=== PATIENT | female | born 1955 | race Caucasian/White ===

== ENCOUNTER 2016-11-23 11:47 | Inpatient (IN) | payer OTHER ==
[2016-11-23 15:21] VITALS: BMI 29.5
--- NOTE | 2016-11-23 17:26 | HP ---
COWS - Scale Resting Pulse: 1= ND 81-100 Sweatin= Chills/Flushing Restless Observation: 3= Extraneous Movement Pupil Size: 0= Normal to Room Light Bone or Joint Aches: 2= Severe Diffuse Aches Runny Nose/ Eye Tearin= Runny Nose/Eyes GI Upset > 30mins: 3= Vomiting/Diarrhea Tremor Observation: 2= Slight Tremor Visible Yawning Observation: 0= None Anxiety or Irritability: 2=Irritable/Anxious Goose Flesh Skin: 0=Smooth Skin COWS Score: 16 [facility] Chief Complaint: withdrawal sx last detox 2011, relapsed 06/2016 Allergies/Adverse Reactions: Allergies Allergy/AdvReac Type Severity Reaction Status Date / Time No Known Allergies Allergy Verified 11/23/16 17:30 History of Present Illness: 61 years old female with long history of opium nicotine dependence, has hypertension, hypercholesterol, glaucoma, and depression is admitted to detox Exam Limitations: No Limitations - Ebola screening Have you traveled outside of the country in the last 21 days: No Have you had contact with anyone from an Ebola affected area: No Have you been sick,other than usual withdrawal symptoms: No Do you have a fever: No - Review of Systems Constitutional: Chills, Changes in sleep, Weight Stable EENT: reports: Cataracts (right eye treated 2006), Other (glaucoma left eye) Respiratory: reports: SOB with Exertion Cardiac: reports: No Symptoms Reported GI: reports: Nausea, Poor Fluid Intake, Vomiting, Abdominal cramping : reports: No Symptoms Reported Musculoskeletal: reports: Back Pain, Joint Pain, Muscle Pain, Neck Pain Integumentary: reports: No Symptoms Reported Neuro: reports: Tremors Endocrine: reports: No Symptoms Reported Hematology: reports: No Symptoms Reported, Other (myocardia infraction 2009 had angiogram, treated with plavix, last dose " long time ago") Psychiatric: reports: Judgement Intact, Orientated x3, Depressed Other Systems: Reviewed and Negative Patient History - Patient Medical History Hx Anemia: No Hx Asthma: No Hx Chronic Obstructive Pulmonary Disease (COPD): No Hx Cancer: No Hx Cardiac Disorders: Yes (MILD DC IN 02/2011--ON ASPIRIN 81 MG DAILY) Hx Congestive Heart Failure: No (ON METAPROLOL 25 MG BID) Hx Hypertension: Yes (currently on treatment) Hx Hypercholesterolemia: Yes (ON PLAVIX 75 MG AND PRAVASTATIN 40 MG DAILY) Hx Pacemaker: No HX Cerebrovascular Accident: No Hx Seizures: No Hx Dementia: No Hx Diabetes: No Hx Gastrointestinal Disorders: No Hx Liver Disease: No Hx Genitourinary Disorders: No Hx Sexually Transmitted Disorders: No Hx Renal Disease (ESRD): No Hx Thyroid Disease: No Hx Human Immunodeficiency Virus (HIV): No Hx Hepatitis C: No Hx Depression: Yes (DEPRESSION) Hx Suicide Attempt: No Hx Bipolar Disorder: No Hx Schizophrenia: No - Patient Surgical History Past Surgical History: Yes Hx Neurologic Surgery: No Hx Cataract Extraction: No Hx Cardiac Surgery: No Hx Lung Surgery: No Hx Breast Surgery: No Hx Breast Biopsy: No Hx Abdominal Surgery: No Hx Appendectomy: No Hx Cholecystectomy: No Hx Genitourinary Surgery: No Hx Section: No Hx Orthopedic Surgery: Yes (RIGHT KNEE SX RELATED TO FX- IN 2008) Hx Hysterectomy: No Other Surgical History: BRAIN SX IN 2007 RELATED TO BENIGN BRAIN TUMOR Anesthesia Reaction: No - PPD History Previous Implant?: Yes Documented Results: Negative w/proof Implanted On Prior [facility] Admission?: Yes Date: 11/01/10 Results: negative PPD to be Administered?: Yes - Reproductive History Patient is a Female of Child Bearing Age (11 -55 yrs old): No Last Menstrual Period: 10/08/96 Patient : No - Smoking Cessation Smoking history: Current every day smoker Have you smoked in the past 12 months: Yes Aproximately how many cigarettes per day: 20 Cigars Per Day: 0 Hx Chewing Tobacco Use: No Initiated information on smoking cessation: Yes 'Breaking Loose' booklet given: 11/23/16 - Substance & Tx. History Hx Alcohol Use: No Hx Substance Use: Yes Substance Use Type: Heroin Hx Substance Use Treatment: Yes (06/17-06/21/11 [facility]) - Substances Abused Heroin Route: Inhalation Frequency: Daily Amount used: 3 bags Age of first use: 55 Date of Last Use: 11/22/16 Family Disease History - Family Disease History Family Disease History: Other: Father (), Mother (kidney dialysis), Brother (killed) Admission Physical Exam BHS - Vital Signs Vital Signs: Vital Signs - 24 hr 11/23/16 15:08 Temperature 96.4 F L Pulse Rate 91 H Respiratory 20 Rate Blood Pressure 140/101 - Physical General Appearance: Yes: Appropriately Dressed, Mild Distress, Tremorous, Irritable, Sweating, Anxious HEENTM: Yes: Hearing grossly Normal, Normal ENT Inspection, Normocephalic, Normal Voice, Other (glaucoma left eye + cataract) Respiratory: Yes: Chest Non-Tender, Lungs Clear, Normal Breath Sounds, No Respiratory Distress, No Accessory Muscle Use Neck: Yes: Supple, Trachea in good position Breast: Yes: Breasts Symetrical Cardiology: Yes: Regular Rhythm, S1, S2, Tachycardia Abdominal: Yes: Non Tender, Soft, Increased Bowel Sounds Genitourinary: Yes: Within Normal Limits Back: Yes: Normal Inspection Musculoskeletal: Yes: full range of Motion, Gait Steady, Back pain, Joint swelling (right knee), Muscle Pain Extremities: Yes: Non-Tender, Tremors, Swelling (right knee) Neurological: Yes: Fully Oriented, Alert, Motor Strength 5/5 (cane), Normal Response, Depressed Affect Integumentary: Yes: Normal Color, Warm Lymphatic: Yes: Within Normal Limits - Diagnostic (1) Opioid dependence with withdrawal Current Visit: Yes Status: Acute (2) Hypertension Current Visit: Yes Status: Chronic Qualifiers: Hypertension type: essential hypertension Qualified Code(s): I10 - Essential (primary) hypertension (3) Hyperlipidemia Current Visit: Yes Status: Chronic Qualifiers: Hyperlipidemia type: pure hypercholesterolemia Qualified Code(s): E78.00 - Pure hypercholesterolemia, unspecified; E78.0 - Pure hypercholesterolemia (4) Glaucoma Current Visit: Yes Status: Chronic Qualifiers: Glaucoma type: other Laterality: left Qualified Code(s): H40.89 - Other specified glaucoma (5) Cataract Current Visit: Yes Status: Resolved Qualifiers: Cataract type: other Laterality: right Qualified Code(s): H26.8 - Other specified cataract (6) Myocardial infarct, old Current Visit: Yes Status: Chronic Comment: 2010 (7) Swelling of right knee joint Current Visit: Yes Status: Chronic Comment: history of trauma (8) Use of cane as ambulatory aid Current Visit: Yes Status: Chronic (9) Depression Current Visit: Yes Status: Suspected Qualifiers: Depression Type: dysthymia Qualified Code(s): F34.1 - Dysthymic disorder Comment: mother (10) Nicotine dependence Current Visit: Yes Status: Acute Qualifiers: Nicotine product type: cigarettes Substance use status: in withdrawal Qualified Code(s): F17.213 - Nicotine dependence, cigarettes, with withdrawal BHS Breath Alcohol Content Breath Alcohol Content: 0 Urine Pregancy Test - Result Urine Test Results: Negative- NO Line Present Urine Drug Screen - Results Drug Screen Negative: No Urine Drug Screen Results: THC-Marijuana, OPI-Opiates, MTD-Methadone
[2016-11-23] MEDS ORDERED: MENTHOL/PHENOL 1 EACH UD MM PRN (17:36)
[2016-11-23] MEDS ORDERED: P-EPHED 60MG/TRIPROLIDI 2.5MG TABLET PO PRN (17:36)
[2016-11-23] MEDS ORDERED: guaiFENesin/D-METHORPHAN HB 10 ML UNIT-DOSE CUPS PO PRN (17:36)
[2016-11-23] MEDS ORDERED: NICOTINE POLACRILEX 4 MG GUM BC PRN (17:36)
[2016-11-23] MEDS ORDERED: MAGNESIUM CITRATE 300 ML BOTTLE PO PRN (17:36)
[2016-11-23] MEDS ORDERED: MAG HYDROX/AL HYDROX/SIMETH 30 ML UNIT-DOSE CUP PO PRN (17:36)
[2016-11-23] MEDS ORDERED: ACETAMINOPHEN 325 MG TABLET (FP) PO PRN (17:36)
[2016-11-23] MEDS ORDERED: LOPERAMIDE HCL 2 MG CAPSULE PO PRN (17:36)
[2016-11-23] MEDS ORDERED: MAGNESIUM HYDROX 2400MG/30ML ORAL SUSPENSION 30 ML CUP PO PRN (17:36)
[2016-11-23] MEDS ORDERED: METHADONE HCL 10 MG TABLET (FOR DETOX USE ONLY) PO ONE ×2 (18:45→23:00)
[2016-11-23] MEDS: diazePAM 5 MG TABLET PO PRN (19:22)
[2016-11-23] MEDS: LATANOPROST 0.005% OPHTH SOLN 2.5ML BOTTLE OS SCH (22:37)
[2016-11-23] MEDS: ATORVASTATIN CA 20 MG TABLET (FP) PO SCH (22:38)
[2016-11-23] MEDS: METOPROLOL TARTRATE 25 MG TABLET (FP) PO SCH (22:38)
[2016-11-23] MEDS: THIAMINE HCL 100 MG TABLET (FP) PO SCH (22:38)
[2016-11-23] MEDS: diphenhydrAMINE HCL 50 MG CAPSULE PO PRN (22:40)
[2016-11-23 23:11] LABS: URINE APPEARANCE SLCLOUDY; URINE BILIRUBIN NEGATIVE (NEGATIVE); URINE BLOOD NEGATIVE (NEGATIVE); URINE COLOR YELLOW; URINE GLUCOSE (UA) NEGATIVE (NEGATIVE); URINE KETONE NEGATIVE (NEGATIVE); URINE NITRITE NEGATIVE (NEGATIVE); URINE PROTEIN NEGATIVE (NEGATIVE); URINE UROBILINOGEN NEGATIVE mg/dL (0.2-1.0)
[2016-11-23 23:14] LABS: URINE LEUK ESTERASE TRACE (NEGATIVE)
[2016-11-23 23:21] LABS: URINE MUCUS RARE; URINE RBC 26 /hpf (0-3); URINE WBC 5 /hpf (3-5)
[2016-11-24] MEDS ORDERED: METHADONE HCL 10 MG TABLET (FOR DETOX USE ONLY) PO ONE (10:00)
[2016-11-24 10:09] LABS: MCH 31.5 pg (25.7-33.7); MCHC 33.8 g/dl (32.0-36.0); MEAN CELL VOLUME 93.3 fl (80-96); MEAN PLT VOLUME 9.2 fl (7.5-11.1); PLATELET COUNT 163 K/MM3 (134-434); RDW 13.9 % (11.6-15.6); WHITE BLOOD COUNT 7.8 K/mm3 (4.0-10.0)
[2016-11-24 10:18] LABS: ALBUMIN 3.3 g/dl (3.4-5.0); ANION GAP 5 (8-16); CALCIUM 9.2 mg/dL (8.5-10.1); CO2 29 mmol/L (21-32); CREATININE 0.8 mg/dL (0.55-1.02); GLUCOSE,RANDOM 83 mg/dL (74-106); SGOT/AST 12 U/L (15-37); SGPT/ALT 15 U/L (12-78)
[2016-11-24 10:20] LABS: ALK PHOS 94 U/L (45-117); BILIRUBIN,TOTAL 0.7 mg/dL (0.2-1.0); TOT PROT 6.6 g/dl (6.4-8.2)
[2016-11-24] MEDS: PRENATAL VITAMINS W/ FOLIC ACID TABLET (FP) PO SCH (10:34)
[2016-11-24] MEDS: ASPIRIN 81 MG CHEWABLE TABLETS PO SCH (10:34)
[2016-11-24] MEDS: NICOTINE 21 MG/24 HOURS TOPICAL PATCH TD SCH (10:35)
[2016-11-24] MEDS: METOPROLOL TARTRATE 25 MG TABLET (FP) PO SCH ×2 (10:35→22:21)
--- NOTE | 2016-11-24 10:37 | PN ---
BHS COWS - Scale Resting Pulse: 0= [place] 80 or Below Sweatin=Flushed/Facial Moisture Restless Observation: 1= Difficult to Sit Still Pupil Size: 0= Normal to Room Light Bone or Joint Aches: 1= Mild Discomfort Runny Nose/ Eye Tearin= Runny Nose/Eyes GI Upset > 30mins: 1= Stomach Cramp Tremor Observation of Outstretched Hands: 2= Slight Tremor Visible Yawning Observation: 2= >3x During Session Anxiety or Irritability: 2=Irritable/Anxious Goose Flesh Skin: 0=Smooth Skin COWS Score: 13 BHS Progress Note (SOAP) Subjective: sweats mild shakes interrupted sleep agitation body aches Objective: 11/24/16 10:37 Vital Signs Temperature 97.7 F 11/24/16 06:33 Pulse Rate 63 11/24/16 06:33 Respiratory Rate 16 11/24/16 06:33 Blood Pressure 122/72 11/24/16 06:33 O2 Sat by Pulse Oximetry (%) Laboratory Tests 11/23/16 11/24/16 19:05 06:30 WBC 7.8 RBC 4.69 Hgb 14.8 Hct 43.7 MCV 93.3 MCH 31.5 MCHC 33.8 RDW 13.9 Plt Count 163 MPV 9.2 Urine Color Yellow Urine Appearance Slcloudy Urine pH 6.0 Ur Specific [place] 1.025 Urine Protein Negative Urine Glucose (UA) Negative Urine Ketones Negative Urine Blood Negative Urine Nitrite Negative Urine Bilirubin Negative Urine Urobilinogen Negative Ur Leukocyte Esterase Trace H Urine RBC 26 Urine WBC 5 Ur Epithelial Cells Few Urine Mucus Rare awake/alert ambulating no acute distress Assessment: 11/24/16 10:37 withdrawal sx Plan: continue detox increase fluids labs pending
--- NOTE | 2016-11-24 13:00 | CONSULT ---
[facility] Psychiatric Consult - Data Date of interview: 11/24/16 Admission source: [facility] Identifying data: Readmission to [facility] for this 61 y/o female seeking detox treatment on for opioid dependence.Patient is since 2009,a mother of three,domiciled,unemployed and supported on 's benefits. Substance Abuse History: Ms Mckenzie admits to heroin abuse since 2009 (3 bags daily ;last use on 11/22/16 via snorting).She states that she has been using methadone, on her own," to stop the craving ".Smokes one pack of cigarettes on a daily basis. Medical History: Consistent with a history of myocardial infarction (2009), glaucoma,hypercholesterolemia,hypertension.Noted additional history of neurosurgery (benign brain tumor) in 2007 and orthosurgery (2008) for fracture of right knee. Psychiatric History: Patient denies history of psychiatric hospitalizations.She admits to a brief period of outpatient psychiatric care for depression,in 2009, after the of .Was prescribed an antidepressant (name not recalled) .Stopped treatment after " a couple of visits " and never returned to [facility] care.Ms Mckenzie is offered option of SSRI medication : she declines.Patient denies history of suicide attempts. Physical/Sexual Abuse/Trauma History: No reported history of sexual abuse or domestic violence. Additional Comment: Urine Drug Screen is positive for marijuana,opiates and methadone. Mental Status Exam - Mental Status Exam Alert and Oriented to: Time, Place, Person Cognitive Function: Good Patient Appearance: Well Groomed Mood: Sad, Anxious Affect: Mood Congruent Patient Behavior: Fatigued, Appropriate, Cooperative Speech Pattern: Clear, Appropriate Voice Loudness: Normal Thought Process: Intact, Goal Oriented Thought Disorder: Not Present Hallucinations: Denies Suicidal Ideation: Denies Homicidal Ideation: Denies Insight/Judgement: Fair Sleep: Well Appetite: Fair Muscle strength/Tone: Normal (no complaint offered) Gait/Station: Other (walks with cane) Psychiatric Findings - Problem List ([place] 1, 2,3) (1) Opioid dependence with withdrawal Current Visit: Yes Status: Acute (2) Nicotine dependence Current Visit: Yes Status: Acute Qualifiers: Nicotine product type: cigarettes Substance use status: in withdrawal Qualified Code(s): F17.213 - Nicotine dependence, cigarettes, with withdrawal (3) Substance induced mood disorder Current Visit: Yes Status: Acute (4) Glaucoma Current Visit: Yes Status: Chronic Qualifiers: Glaucoma type: other Laterality: left Qualified Code(s): H40.89 - Other specified glaucoma (5) Hyperlipidemia Current Visit: Yes Status: Chronic Qualifiers: Hyperlipidemia type: pure hypercholesterolemia Qualified Code(s): E78.00 - Pure hypercholesterolemia, unspecified; E78.0 - Pure hypercholesterolemia (6) Hypertension Current Visit: Yes Status: Chronic Qualifiers: Hypertension type: essential hypertension Qualified Code(s): I10 - Essential (primary) hypertension (7) Myocardial infarct, old Current Visit: Yes Status: Chronic Comment: 2009 (8) Swelling of right knee joint Current Visit: Yes Status: Chronic Comment: history of trauma (9) Use of cane as ambulatory aid Current Visit: Yes Status: Chronic - Initial Treatment Plan Initial Treatment Plan: Psychoeducation and support offered in this session.S report is appreciated.Detoxification is under way.No psychotropic medications with the exception of detox agents (patient's request).Made aware of benefits of pharmacotherapy in the management of affective dysregulation and risks ( morbidity,poor general functioning,impulsive behaviors) of negation of therapy.Patient maintains her decision to abstain from antidepressant medications.Observation.
--- NOTE | 2016-11-24 17:07 | EKG ---
Test Reason : Blood Pressure : / mmHG Vent. Rate : 075 BPM Atrial Rate : 075 BPM P-R Int : 156 ms QRS Dur : 086 ms QT Int : 394 ms P-R-T Axes : 066 063 047 degrees QTc Int : 439 ms NORMAL SINUS RHYTHM POSSIBLE LEFT ATRIAL ENLARGEMENT BORDERLINE ECG NO PREVIOUS ECGS AVAILABLE Confirmed by JESSICA FLETCHER MD ([id number]) on 11/24/2016 5:07:36 PM Referred By: Confirmed By:JESSICA FLETCHER MD
[2016-11-24] MEDS: LATANOPROST 0.005% OPHTH SOLN 2.5ML BOTTLE OS SCH (22:20)
[2016-11-24] MEDS: ATORVASTATIN CA 20 MG TABLET (FP) PO SCH (22:21)
[2016-11-24] MEDS: THIAMINE HCL 100 MG TABLET (FP) PO SCH (22:21)
[2016-11-24] MEDS: diazePAM 5 MG TABLET PO PRN (22:22)
[2016-11-25] MEDS ORDERED: METHADONE HCL 5 MG TABLET (FOR DETOX USE ONLY) PO ONE (10:00)
[2016-11-25] MEDS: PRENATAL VITAMINS W/ FOLIC ACID TABLET (FP) PO SCH (10:33)
[2016-11-25] MEDS: ASPIRIN 81 MG CHEWABLE TABLETS PO SCH (10:33)
[2016-11-25] MEDS: METOPROLOL TARTRATE 25 MG TABLET (FP) PO SCH ×2 (10:33→22:50)
[2016-11-25] MEDS: NICOTINE 21 MG/24 HOURS TOPICAL PATCH TD SCH (10:34)
--- NOTE | 2016-11-25 11:29 | PN ---
BHS COWS - Scale Resting Pulse: 0= [place] 80 or Below Sweatin= Chills/Flushing Restless Observation: 1= Difficult to Sit Still Pupil Size: 0= Normal to Room Light Bone or Joint Aches: 1= Mild Discomfort Runny Nose/ Eye Tearin= Nasal Congestion GI Upset > 30mins: 0= None Tremor Observation of Outstretched Hands: 2= Slight Tremor Visible Yawning Observation: 2= >3x During Session Anxiety or Irritability: 2=Irritable/Anxious Goose Flesh Skin: 0=Smooth Skin COWS Score: 10 S Progress Note (SOAP) Subjective: feeling better sweats I want to leave on Wednesday. Objective: 11/25/16 11:26 Vital Signs Temperature 97.5 F L 11/25/16 06:53 Pulse Rate 67 11/25/16 06:53 Respiratory Rate 16 11/25/16 06:53 Blood Pressure 136/73 11/25/16 06:53 O2 Sat by Pulse Oximetry (%) Laboratory Tests 11/23/16 11/23/16 11/24/16 06:30 19:05 06:30 WBC 7.8 RBC 4.69 Hgb 14.8 Hct 43.7 MCV 93.3 MCH 31.5 MCHC 33.8 RDW 13.9 Plt Count 163 MPV 9.2 Sodium Potassium Chloride Carbon Dioxide Anion Gap BUN Creatinine Creat Clearance w eGFR Random Glucose Calcium Total Bilirubin AST ALT Alkaline Phosphatase Total Protein Albumin Urine Color Yellow Urine Appearance Slcloudy Urine pH 6.0 Ur Specific [place] 1.025 Urine Protein Negative Urine Glucose (UA) Negative Urine Ketones Negative Urine Blood Negative Urine Nitrite Negative Urine Bilirubin Negative Urine Urobilinogen Negative Ur Leukocyte Esterase Trace H Urine RBC 26 Urine WBC 5 Ur Epithelial Cells Few Urine Mucus Rare RPR Titer Hepatitis C Antibody 2.3 H 11/24/16 11/24/16 06:30 06:30 WBC RBC Hgb Hct MCV MCH MCHC RDW Plt Count MPV Sodium 142 Potassium 4.3 Chloride 108 H Carbon Dioxide 29 Anion Gap 5 L BUN 16 Creatinine 0.8 Creat Clearance w eGFR > 60 Random Glucose 83 Calcium 9.2 Total Bilirubin 0.7 D AST 12 L ALT 15 D Alkaline Phosphatase 94 Total Protein 6.6 Albumin 3.3 L Urine Color Urine Appearance Urine pH Ur Specific [place] Urine Protein Urine Glucose (UA) Urine Ketones Urine Blood Urine Nitrite Urine Bilirubin Urine Urobilinogen Ur Leukocyte Esterase Urine RBC Urine WBC Ur Epithelial Cells Urine Mucus RPR Titer Nonreactive Hepatitis C Antibody Hep C result show a positive result: pt made aware to follow up with PMD awake/alert ambulating no acute distress Assessment: 11/25/16 11:27 mild withdrawal sx Plan: continue detox pt in agreement to have one methadone dose decreased so pt can be d/c on Wednesday as per pt request. Encouraged pt to f/u with PMD on Hep C result copy of result in chart.
[2016-11-25] MEDS: diazePAM 5 MG TABLET PO PRN (22:49)
[2016-11-25] MEDS: LATANOPROST 0.005% OPHTH SOLN 2.5ML BOTTLE OS SCH (22:49)
[2016-11-25] MEDS: THIAMINE HCL 100 MG TABLET (FP) PO SCH (22:49)
[2016-11-25] MEDS: ATORVASTATIN CA 20 MG TABLET (FP) PO SCH (22:50)
[2016-11-26] MEDS ORDERED: METHADONE HCL 5 MG TABLET (FOR DETOX USE ONLY) PO ONE (10:00)
[2016-11-26] MEDS ORDERED: METHADONE HCL 10 MG TABLET (FOR DETOX USE ONLY) PO ONE (10:00)
[2016-11-26] MEDS: ASPIRIN 81 MG CHEWABLE TABLETS PO SCH (10:55)
[2016-11-26] MEDS: NICOTINE 21 MG/24 HOURS TOPICAL PATCH TD SCH (10:55)
[2016-11-26] MEDS: PRENATAL VITAMINS W/ FOLIC ACID TABLET (FP) PO SCH (10:55)
[2016-11-26] MEDS: METOPROLOL TARTRATE 25 MG TABLET (FP) PO SCH ×2 (10:55→22:54)
--- NOTE | 2016-11-26 12:52 | PN ---
BHS Progress Note (SOAP) Subjective: ALERT,IRRITABLE,ANXIOUS,INTERRUPTED SLEEP,PAIN IN THE BODY Objective: 11/26/16 12:55 Vital Signs Temperature 97.7 F 11/26/16 10:00 Pulse Rate 68 11/26/16 10:00 Respiratory Rate 18 11/26/16 10:00 Blood Pressure 138/82 11/26/16 10:00 O2 Sat by Pulse Oximetry (%) Assessment: 11/26/16 12:55 WITHDRAWAL SYMPTOM Plan: CONTINUE DETOX
[2016-11-26] MEDS: THIAMINE HCL 100 MG TABLET (FP) PO SCH (22:54)
[2016-11-26] MEDS: LATANOPROST 0.005% OPHTH SOLN 2.5ML BOTTLE OS SCH (22:54)
[2016-11-26] MEDS: ATORVASTATIN CA 20 MG TABLET (FP) PO SCH (22:54)
[2016-11-26] MEDS: diphenhydrAMINE HCL 50 MG CAPSULE PO PRN (22:55)
[2016-11-27 07:21] VITALS: BP 112/63; PULSE 58; TEMP 97.9
--- NOTE | 2016-11-27 08:47 | DS ---
[facility] Detox Discharge Summary Admission Date: 11/23/16 Discharge Date: 11/27/16 - History Present History: Opioid Dependence - Physical Exam Results Vital Signs: Vital Signs Temperature 97.9 F 11/27/16 06:00 Pulse Rate 58 L 11/27/16 06:00 Respiratory Rate 18 11/27/16 06:00 Blood Pressure 112/63 11/27/16 06:00 O2 Sat by Pulse Oximetry (%) - Treatment Hospital Course: Detox Protocol Followed, Detoxed Safely, Responded well, Discharged Condition Good - Medication Discharge Medications: Ambulatory Orders Aspirin Coated [Ecotrin] 81 mg PO DAILY 06/17/11 Clopidogrel Bisulfate [Plavix] 75 mg PO DAILY 06/17/11 Latanoprost 0.005% Eye Drops [Xalatan Ophth Drops] 1 drop OP HS 06/17/11 Metoprolol Tartrate [Lopressor] 25 mg PO BID 06/17/11 Pravastatin Sodium [Pravachol (Nf)] 40 mg PO HS 06/17/11 Citalopram Hydrobromide [Celexa] 20 mg PO DAILY #0 tablet 06/21/11 - Diagnosis (1) Nicotine dependence Current Visit: Yes Status: Acute Qualifiers: Nicotine product type: cigarettes Substance use status: in withdrawal Qualified Code(s): F17.213 - Nicotine dependence, cigarettes, with withdrawal (2) Opioid dependence with withdrawal Current Visit: Yes Status: Acute (3) Glaucoma Current Visit: Yes Status: Chronic Qualifiers: Glaucoma type: other Laterality: left Qualified Code(s): H40.89 - Other specified glaucoma (4) Hyperlipidemia Current Visit: Yes Status: Chronic Qualifiers: Hyperlipidemia type: pure hypercholesterolemia Qualified Code(s): E78.00 - Pure hypercholesterolemia, unspecified; E78.0 - Pure hypercholesterolemia (5) Hypertension Current Visit: Yes Status: Chronic Qualifiers: Hypertension type: essential hypertension Qualified Code(s): I10 - Essential (primary) hypertension (6) Myocardial infarct, old Current Visit: Yes Status: Chronic (7) Depression Current Visit: Yes Status: Suspected Qualifiers: Depression Type: dysthymia Qualified Code(s): F34.1 - Dysthymic disorder (8) Cataract Current Visit: Yes Status: Resolved Qualifiers: Cataract type: other Laterality: right Qualified Code(s): H26.8 - Other specified cataract; H26 - Other cataract - AMA Did Patient Leave Against Medical Advice: No
[2016-11-27] MEDS ORDERED: METHADONE HCL 5 MG TABLET (FOR DETOX USE ONLY) PO ONE ×2 (09:07→10:00)
[2016-11-27] MEDS: METOPROLOL TARTRATE 25 MG TABLET (FP) PO SCH (09:14)
[2016-11-27] MEDS: PRENATAL VITAMINS W/ FOLIC ACID TABLET (FP) PO SCH (09:15)
[2016-11-27] MEDS: ASPIRIN 81 MG CHEWABLE TABLETS PO SCH (09:15)
[2016-11-27] MEDS: NICOTINE 21 MG/24 HOURS TOPICAL PATCH TD SCH (09:15)
[2016-11-27] MEDS ORDERED: METHADONE HCL 10 MG TABLET (FOR DETOX USE ONLY) PO ONE (10:00)
[2016-11-28] MEDS ORDERED: METHADONE HCL 5 MG TABLET (FOR DETOX USE ONLY) PO ONE (06:00)
== END 2016-11-27 09:47 | disposition home or self-care (01) | DRG 897 ==
LOC: YASAS 11:47 → Y6N 18:13
PROVIDERS: ADMIT Internal Medicine Addiction Medicine; ATTEND Internal Medicine Addiction Medicine
PROC: HZ2ZZZZ Detoxification Services for Substance Abuse Treatment (ICD-10-PCS; principal; 2016-11-27)
DX: F11.23 Opioid dependence with withdrawal (principal); F17.210 Nicotine dependence, cigarettes, uncomplicated; F19.24 Other psychoactive substance dependence with psychoactive substance-induced mood disorder; F34.1 Dysthymic disorder; I25.2 Old myocardial infarction; I10 Essential (primary) hypertension; E78.00 Pure hypercholesterolemia, unspecified; H26.8 Other specified cataract; H40.89 Other specified glaucoma; M25.461 Effusion, right knee; R26.89 Other abnormalities of gait and mobility; Z99.89 Dependence on other enabling machines and devices
CPT/HCPCS: 36415; 80053; 81003; 81015; 85027; 86593; 86803; 87522; 93005; 93010

== ENCOUNTER 2021-08-04 11:27 | Inpatient (IN) | payer MEDICARE, OTHER ==
[2021-08-04] MEDS ORDERED: LOPERAMIDE HCL 2 MG CAPSULE PO PRN (12:13)
[2021-08-04] MEDS ORDERED: MAGNESIUM HYDROX 2400MG/30ML ORAL SUSPENSION 30 ML CUP PO PRN (12:13)
[2021-08-04] MEDS ORDERED: NALOXONE HCL 0.4 MG/ML VIAL IM PRN (12:13)
[2021-08-04] MEDS ORDERED: IBUPROFEN 400 MG TABLET (FP) PO PRN (12:13)
[2021-08-04] MEDS ORDERED: MAGNESIUM CITRATE 300 ML BOTTLE PO PRN (12:13)
[2021-08-04] MEDS ORDERED: ACETAMINOPHEN 325 MG TABLET (FP) PO PRN ×2 (12:13)
[2021-08-04] MEDS ORDERED: MENTHOL/PHENOL 1 EACH UD MM PRN (12:13)
[2021-08-04] MEDS ORDERED: BISMUTH SUBSALICYLATE 524 MG/30 ML PO PRN (12:13)
[2021-08-04] MEDS ORDERED: MAG HYDROX/AL HYDROX/SIMETH 30 ML UNIT-DOSE CUP PO PRN (12:13)
[2021-08-04 12:51] VITALS: BMI 31.4
[2021-08-04] MEDS: hydrOXYzine PAMOATE 25 MG CAPSULE (FP) PO SCH ×3 (14:07→22:25)
[2021-08-04] MEDS: PRENATAL VITAMINS W/ FOLIC ACID TABLET (FP) PO SCH (14:08)
[2021-08-04 16:38] LABS: HEMOGLOBIN 14.3 GM/dL (10.7-15.3); MCH 31.4 pg (25.7-33.7); MCHC 33.4 g/dl (32.0-36.0); MEAN CELL VOLUME 94.1 fl (80-96); MEAN PLT VOLUME 9.4 fl (7.5-11.1); PLATELET COUNT 195 10^3/uL (134-434); RBC 4.57 M/mm3 (3.60-5.2); RDW 14.3 % (11.6-15.6); WHITE BLOOD COUNT 6.9 K/mm3 (4.0-10.0)
[2021-08-04] MEDS: ONDANSETRON *ODT* 4 MG TABLET SL PRN (17:46)
[2021-08-04 18:13] LABS: ALBUMIN 3.7 g/dl (3.4-5.0); CALCIUM 9.2 mg/dL (8.5-10.1)
[2021-08-04 18:14] LABS: BLOOD UREA NITROGEN 17.2 mg/dL (7-18)
[2021-08-04 18:18] LABS: BILIRUBIN,TOTAL 0.3 mg/dL (0.2-1); TOT PROT 7.3 g/dl (6.4-8.2)
[2021-08-04] MEDS ORDERED: PATIENT'S OWN MEDICATION (NON-FORMULARY) (Pravastatin Sodium 40 MG Tablet) PO SCH (22:00)
[2021-08-04] MEDS: LATANOPROST 0.005% OPHTH SOLN 2.5ML BOTTLE OU SCH (22:24)
[2021-08-04] MEDS: METOPROLOL TARTRATE 25 MG TABLET (FP) PO SCH (22:24)
[2021-08-04] MEDS: MELATONIN 5 MG TABLETS PO SCH (22:25)
[2021-08-04] MEDS: ATORVASTATIN CA 20 MG TABLET (FP) PO SCH (22:25)
[2021-08-04] MEDS: THIAMINE HCL 100 MG TABLET (FP) PO SCH (22:25)
[2021-08-05] MEDS: hydrOXYzine PAMOATE 25 MG CAPSULE (FP) PO SCH ×2 (07:21→14:05)
[2021-08-05] MEDS: ONDANSETRON *ODT* 4 MG TABLET SL PRN (07:23)
[2021-08-05] MEDS ORDERED: CLOPIDOGREL BISULFATE 75 MG TABLET (FP) PO SCH (10:00)
[2021-08-05] MEDS ORDERED: methaDONE HCL 10 MG TABLET (FOR DETOX USE ONLY) PO ONE (10:51)
[2021-08-05] MEDS ORDERED: clonazePAM 0.5 MG ODT TABLETS SL PRN (10:51)
[2021-08-05] MEDS ORDERED: cloNIDine HCL 0.1 MG TABLET PO PRN (10:51)
[2021-08-05] MEDS: NICOTINE 10 MG CARTRIDGE (INHALER) IH PRN (10:57)
[2021-08-05] MEDS: METOPROLOL TARTRATE 25 MG TABLET (FP) PO SCH ×2 (10:58→22:11)
[2021-08-05] MEDS: ASPIRIN COATED 81 MG TABLET.EC PO SCH (10:58)
[2021-08-05] MEDS: hydrOXYzine PAMOATE 25 MG CAPSULE (FP) PO PRN (10:58)
[2021-08-05] MEDS: PRENATAL VITAMINS W/ FOLIC ACID TABLET (FP) PO SCH (10:58)
[2021-08-05] MEDS: ATORVASTATIN CA 20 MG TABLET (FP) PO SCH (22:11)
[2021-08-05] MEDS: THIAMINE HCL 100 MG TABLET (FP) PO SCH (22:11)
[2021-08-05] MEDS: MELATONIN 5 MG TABLETS PO SCH (22:11)
[2021-08-05] MEDS: LATANOPROST 0.005% OPHTH SOLN 2.5ML BOTTLE OU SCH (22:13)
[2021-08-06 06:06] LABS: SARS-CoV-2 NAA Not Detected (Not Detected)
[2021-08-06] MEDS ORDERED: methaDONE HCL 10 MG TABLET (FOR DETOX USE ONLY) ONE (09:09)
[2021-08-06] MEDS: hydrOXYzine PAMOATE 25 MG CAPSULE (FP) PO PRN ×2 (09:34→15:17)
[2021-08-06] MEDS: ASPIRIN COATED 81 MG TABLET.EC PO SCH (09:34)
[2021-08-06] MEDS: METOPROLOL TARTRATE 25 MG TABLET (FP) PO SCH ×2 (09:41→22:33)
[2021-08-06] MEDS: PRENATAL VITAMINS W/ FOLIC ACID TABLET (FP) PO SCH (09:42)
[2021-08-06] MEDS: METHOCARBAMOL 500 MG TABLET PO PRN (15:17)
[2021-08-06] MEDS: LATANOPROST 0.005% OPHTH SOLN 2.5ML BOTTLE OU SCH (22:33)
[2021-08-06] MEDS: MELATONIN 5 MG TABLETS PO SCH (22:33)
[2021-08-06] MEDS: THIAMINE HCL 100 MG TABLET (FP) PO SCH (22:33)
[2021-08-06] MEDS: ATORVASTATIN CA 20 MG TABLET (FP) PO SCH (22:33)
[2021-08-07] MEDS ORDERED: methaDONE HCL 10 MG TABLET (FOR DETOX USE ONLY) PO ONE (10:00)
[2021-08-07] MEDS: METOPROLOL TARTRATE 25 MG TABLET (FP) PO SCH ×2 (10:25→22:29)
[2021-08-07] MEDS: PRENATAL VITAMINS W/ FOLIC ACID TABLET (FP) PO SCH (10:25)
[2021-08-07] MEDS: ASPIRIN COATED 81 MG TABLET.EC PO SCH (10:25)
[2021-08-07] MEDS: NICOTINE 10 MG CARTRIDGE (INHALER) IH PRN ×2 (13:09→19:27)
[2021-08-07] MEDS: LATANOPROST 0.005% OPHTH SOLN 2.5ML BOTTLE OU SCH (22:28)
[2021-08-07] MEDS: METHOCARBAMOL 500 MG TABLET PO PRN (22:29)
[2021-08-07] MEDS: ATORVASTATIN CA 20 MG TABLET (FP) PO SCH (22:29)
[2021-08-07] MEDS: MELATONIN 5 MG TABLETS PO SCH (22:29)
[2021-08-07] MEDS: THIAMINE HCL 100 MG TABLET (FP) PO SCH (22:29)
[2021-08-08] MEDS ORDERED: methaDONE HCL 10 MG TABLET (FOR DETOX USE ONLY) ONE (09:09)
[2021-08-08] MEDS: PRENATAL VITAMINS W/ FOLIC ACID TABLET (FP) PO SCH (10:08)
[2021-08-08] MEDS: ASPIRIN COATED 81 MG TABLET.EC PO SCH (10:08)
[2021-08-08] MEDS: METOPROLOL TARTRATE 25 MG TABLET (FP) PO SCH ×2 (10:11→22:13)
[2021-08-08] MEDS: NICOTINE 10 MG CARTRIDGE (INHALER) IH PRN (15:29)
[2021-08-08] MEDS: LATANOPROST 0.005% OPHTH SOLN 2.5ML BOTTLE OU SCH (22:12)
[2021-08-08] MEDS: THIAMINE HCL 100 MG TABLET (FP) PO SCH (22:13)
[2021-08-08] MEDS: MELATONIN 5 MG TABLETS PO SCH (22:13)
[2021-08-08] MEDS: ATORVASTATIN CA 20 MG TABLET (FP) PO SCH (22:13)
[2021-08-09] MEDS: ASPIRIN COATED 81 MG TABLET.EC PO SCH (09:40)
[2021-08-09] MEDS: PRENATAL VITAMINS W/ FOLIC ACID TABLET (FP) PO SCH (09:40)
[2021-08-09] MEDS: METOPROLOL TARTRATE 25 MG TABLET (FP) PO SCH ×2 (09:40→22:09)
[2021-08-09] MEDS: METHOCARBAMOL 500 MG TABLET PO PRN (09:42)
[2021-08-09] MEDS ORDERED: methaDONE HCL 10 MG TABLET (FOR DETOX USE ONLY) PO ONE (10:00)
[2021-08-09] MEDS: NICOTINE 10 MG CARTRIDGE (INHALER) IH PRN ×2 (13:45→18:25)
[2021-08-09] MEDS: MELATONIN 5 MG TABLETS PO SCH (22:09)
[2021-08-09] MEDS: LATANOPROST 0.005% OPHTH SOLN 2.5ML BOTTLE OU SCH (22:09)
[2021-08-09] MEDS: ATORVASTATIN CA 20 MG TABLET (FP) PO SCH (22:09)
[2021-08-09] MEDS: THIAMINE HCL 100 MG TABLET (FP) PO SCH (22:09)
[2021-08-10] MEDS: NICOTINE 10 MG CARTRIDGE (INHALER) IH PRN (06:39)
[2021-08-10 08:34] VITALS: BP 120/74; PULSE 71; TEMP 97.8
== END 2021-08-10 09:44 | disposition home or self-care (01) | DRG 897 ==
LOC: YASAS 11:27 → Y3N 13:11
PROVIDERS: ADMIT Allergy & Immunology; ATTEND Allergy & Immunology
PROC: HZ2ZZZZ Detoxification Services for Substance Abuse Treatment (ICD-10-PCS; principal; 2021-08-04)
DX: F11.23 Opioid dependence with withdrawal (principal); F12.20 Cannabis dependence, uncomplicated; F17.210 Nicotine dependence, cigarettes, uncomplicated; F19.24 Other psychoactive substance dependence with psychoactive substance-induced mood disorder; F34.1 Dysthymic disorder; I10 Essential (primary) hypertension; H40.89 Other specified glaucoma; E78.00 Pure hypercholesterolemia, unspecified; R76.11 Nonspecific reaction to tuberculin skin test without active tuberculosis; I25.2 Old myocardial infarction
CPT/HCPCS: 36415; 71046-TC-FY; 80053; 85027; 86593; 86780; 87811; 93005; 93010; C9803-CS; Q0162; U0003; U0005

== ENCOUNTER 2021-11-11 11:26 | Inpatient (IN) | payer MEDICARE, OTHER ==
[2021-11-11 13:11] VITALS: BMI 31.9
[2021-11-11] MEDS ORDERED: BISMUTH SUBSALICYLATE 524 MG/30 ML PO PRN (13:31)
[2021-11-11] MEDS ORDERED: MAG HYDROX/AL HYDROX/SIMETH 30 ML UNIT-DOSE CUP PO PRN (13:31)
[2021-11-11] MEDS ORDERED: BENZOCAINE/MENTHOL (CHLORASEPTIC ) LOZENGE MM PRN (13:31)
[2021-11-11] MEDS ORDERED: LOPERAMIDE HCL 2 MG CAPSULE PO PRN (13:31)
[2021-11-11] MEDS ORDERED: MAGNESIUM CITRATE 300 ML BOTTLE PO PRN (13:31)
[2021-11-11] MEDS ORDERED: DICYCLOMINE HCL 10 MG CAPSULE PO PRN (13:31)
[2021-11-11] MEDS ORDERED: cloNIDine HCL 0.1 MG TABLET PO PRN (13:31)
[2021-11-11] MEDS ORDERED: IBUPROFEN 400 MG TABLET (FP) PO PRN (13:31)
[2021-11-11] MEDS ORDERED: MAGNESIUM HYDROX 2400MG/30ML ORAL SUSPENSION 30 ML CUP PO PRN (13:31)
[2021-11-11] MEDS ORDERED: ACETAMINOPHEN 325 MG TABLET (FP) PO PRN ×2 (13:31)
[2021-11-11] MEDS ORDERED: IBUPROFEN 600 MG TABLET (FP) PO PRN (13:31)
[2021-11-11] MEDS ORDERED: ONDANSETRON *ODT* 4 MG TABLET SL PRN (13:31)
[2021-11-11] MEDS ORDERED: methaDONE HCL 10 MG TABLET (FOR DETOX USE ONLY) PO ONE (14:15)
[2021-11-11] MEDS: hydrOXYzine PAMOATE 25 MG CAPSULE (FP) PO SCH ×3 (14:52→22:09)
[2021-11-11] MEDS: PRENATAL VITAMINS W/ FOLIC ACID TABLET (FP) PO SCH (14:52)
[2021-11-11] MEDS: NICOTINE 7 MG/24 HOURS TOPICAL PATCH TD SCH (14:54)
[2021-11-11] MEDS: METHOCARBAMOL 500 MG TABLET PO PRN ×2 (14:54→22:09)
[2021-11-11] MEDS: MELATONIN 5 MG TABLETS PO SCH (22:08)
[2021-11-11] MEDS: THIAMINE HCL 100 MG TABLET (FP) PO SCH (22:09)
[2021-11-12] MEDS: hydrOXYzine PAMOATE 25 MG CAPSULE (FP) PO SCH ×5 (07:12→22:04)
[2021-11-12 08:28] LABS: HEMATOCRIT 41.6 % (32.4-45.2); HEMOGLOBIN 13.8 GM/dL (10.7-15.3); MCH 31.2 pg (25.7-33.7); MCHC 33.2 g/dl (32.0-36.0); MEAN CELL VOLUME 93.9 fl (80-96); MEAN PLT VOLUME 9.4 fl (7.5-11.1); PLATELET COUNT 218 10^3/uL (134-434); RBC 4.43 M/mm3 (3.60-5.2); RDW 14.3 % (11.6-15.6); WHITE BLOOD COUNT 9.2 K/mm3 (4.0-10.0)
[2021-11-12 08:39] LABS: ALBUMIN 3.7 g/dl (3.4-5.0); CALCIUM 9.5 mg/dL (8.5-10.1)
[2021-11-12 08:40] LABS: BLOOD UREA NITROGEN 18.7 mg/dL (7-18)
[2021-11-12 08:42] LABS: CREATININE 0.9 mg/dL (0.55-1.3)
[2021-11-12 08:43] LABS: TOT PROT 7.2 g/dl (6.4-8.2)
[2021-11-12 08:44] LABS: BILIRUBIN,TOTAL 0.4 mg/dL (0.2-1)
[2021-11-12] MEDS ORDERED: methaDONE HCL 10 MG TABLET (FOR DETOX USE ONLY) ONE (09:39)
[2021-11-12] MEDS: PRENATAL VITAMINS W/ FOLIC ACID TABLET (FP) PO SCH (10:08)
[2021-11-12] MEDS: NICOTINE 10 MG CARTRIDGE (INHALER) IH PRN ×2 (10:10→18:47)
[2021-11-12] MEDS: NICOTINE 7 MG/24 HOURS TOPICAL PATCH TD SCH (10:13)
[2021-11-12] MEDS: CLOPIDOGREL BISULFATE 75 MG TABLET (FP) PO SCH (12:21)
[2021-11-12] MEDS: ASPIRIN COATED 81 MG TABLET.EC PO SCH (12:21)
[2021-11-12] MEDS: METHOCARBAMOL 500 MG TABLET PO PRN (17:41)
[2021-11-12] MEDS: THIAMINE HCL 100 MG TABLET (FP) PO SCH (22:04)
[2021-11-12] MEDS: LATANOPROST 0.005% OPHTH SOLN 2.5ML BOTTLE OU SCH (22:04)
[2021-11-12] MEDS: ATORVASTATIN CA 20 MG TABLET (FP) PO SCH (22:04)
[2021-11-12] MEDS: METOPROLOL TARTRATE 25 MG TABLET (FP) PO SCH (22:04)
[2021-11-12] MEDS: MELATONIN 5 MG TABLETS PO SCH (22:04)
[2021-11-13] MEDS: hydrOXYzine PAMOATE 25 MG CAPSULE (FP) PO SCH ×5 (05:24→22:40)
[2021-11-13] MEDS ORDERED: methaDONE HCL 10 MG TABLET (FOR DETOX USE ONLY) PO ONE (10:00)
[2021-11-13] MEDS: METOPROLOL TARTRATE 25 MG TABLET (FP) PO SCH ×2 (10:11→22:40)
[2021-11-13] MEDS: CLOPIDOGREL BISULFATE 75 MG TABLET (FP) PO SCH (10:11)
[2021-11-13] MEDS: PRENATAL VITAMINS W/ FOLIC ACID TABLET (FP) PO SCH (10:11)
[2021-11-13] MEDS: ASPIRIN COATED 81 MG TABLET.EC PO SCH (10:11)
[2021-11-13] MEDS: NICOTINE 7 MG/24 HOURS TOPICAL PATCH TD SCH (10:13)
[2021-11-13] MEDS: MELATONIN 5 MG TABLETS PO SCH (22:40)
[2021-11-13] MEDS: ATORVASTATIN CA 20 MG TABLET (FP) PO SCH (22:40)
[2021-11-13] MEDS: LATANOPROST 0.005% OPHTH SOLN 2.5ML BOTTLE OU SCH (22:41)
[2021-11-13] MEDS: THIAMINE HCL 100 MG TABLET (FP) PO SCH (22:41)
[2021-11-14] MEDS: hydrOXYzine PAMOATE 25 MG CAPSULE (FP) PO SCH ×5 (05:52→22:53)
[2021-11-14] MEDS ORDERED: methaDONE HCL 10 MG TABLET (FOR DETOX USE ONLY) ONE (09:30)
[2021-11-14] MEDS: PRENATAL VITAMINS W/ FOLIC ACID TABLET (FP) PO SCH (10:24)
[2021-11-14] MEDS: ASPIRIN COATED 81 MG TABLET.EC PO SCH (10:24)
[2021-11-14] MEDS: METOPROLOL TARTRATE 25 MG TABLET (FP) PO SCH ×2 (10:24→22:53)
[2021-11-14] MEDS: CLOPIDOGREL BISULFATE 75 MG TABLET (FP) PO SCH (10:24)
[2021-11-14] MEDS: METHOCARBAMOL 500 MG TABLET PO PRN (10:25)
[2021-11-14] MEDS: NICOTINE 7 MG/24 HOURS TOPICAL PATCH TD SCH (10:27)
[2021-11-14] MEDS: NICOTINE 10 MG CARTRIDGE (INHALER) IH PRN ×2 (15:10→22:55)
[2021-11-14] MEDS: MELATONIN 5 MG TABLETS PO SCH (22:53)
[2021-11-14] MEDS: THIAMINE HCL 100 MG TABLET (FP) PO SCH (22:53)
[2021-11-14] MEDS: ATORVASTATIN CA 20 MG TABLET (FP) PO SCH (22:53)
[2021-11-14] MEDS: LATANOPROST 0.005% OPHTH SOLN 2.5ML BOTTLE OU SCH (22:53)
[2021-11-15] MEDS: hydrOXYzine PAMOATE 25 MG CAPSULE (FP) PO SCH ×5 (06:03→23:02)
[2021-11-15] MEDS ORDERED: methaDONE HCL 10 MG TABLET (FOR DETOX USE ONLY) PO ONE (10:00)
[2021-11-15] MEDS: ASPIRIN COATED 81 MG TABLET.EC PO SCH (11:14)
[2021-11-15] MEDS: METOPROLOL TARTRATE 25 MG TABLET (FP) PO SCH ×2 (11:14→23:01)
[2021-11-15] MEDS: CLOPIDOGREL BISULFATE 75 MG TABLET (FP) PO SCH (11:14)
[2021-11-15] MEDS: PRENATAL VITAMINS W/ FOLIC ACID TABLET (FP) PO SCH (11:14)
[2021-11-15] MEDS: NICOTINE 7 MG/24 HOURS TOPICAL PATCH TD SCH (11:17)
[2021-11-15] MEDS: NICOTINE 10 MG CARTRIDGE (INHALER) IH PRN (17:44)
[2021-11-15] MEDS: ATORVASTATIN CA 20 MG TABLET (FP) PO SCH (23:01)
[2021-11-15] MEDS: MELATONIN 5 MG TABLETS PO SCH (23:01)
[2021-11-15] MEDS: THIAMINE HCL 100 MG TABLET (FP) PO SCH (23:01)
[2021-11-15] MEDS: LATANOPROST 0.005% OPHTH SOLN 2.5ML BOTTLE OU SCH (23:02)
[2021-11-16] MEDS: hydrOXYzine PAMOATE 25 MG CAPSULE (FP) PO SCH ×2 (05:40→09:48)
[2021-11-16] MEDS: NICOTINE 10 MG CARTRIDGE (INHALER) IH PRN (05:41)
[2021-11-16] MEDS: METOPROLOL TARTRATE 25 MG TABLET (FP) PO SCH (09:46)
[2021-11-16] MEDS: CLOPIDOGREL BISULFATE 75 MG TABLET (FP) PO SCH (09:46)
[2021-11-16] MEDS: PRENATAL VITAMINS W/ FOLIC ACID TABLET (FP) PO SCH (09:46)
[2021-11-16] MEDS: ASPIRIN COATED 81 MG TABLET.EC PO SCH (09:46)
[2021-11-16] MEDS: NICOTINE 7 MG/24 HOURS TOPICAL PATCH TD SCH (09:48)
[2021-11-16 10:18] VITALS: BP 127/74; PULSE 73; TEMP 97.3
== END 2021-11-16 11:00 | disposition home or self-care (01) | DRG 897 ==
LOC: YASAS 11:26 → Y6N 14:28
PROVIDERS: ADMIT Allergy & Immunology; ATTEND Surgery
PROC: HZ2ZZZZ Detoxification Services for Substance Abuse Treatment (ICD-10-PCS; principal; 2021-11-11)
DX: F11.23 Opioid dependence with withdrawal (principal); G40.89 Other seizures; F17.210 Nicotine dependence, cigarettes, uncomplicated; F19.24 Other psychoactive substance dependence with psychoactive substance-induced mood disorder; E78.00 Pure hypercholesterolemia, unspecified; I10 Essential (primary) hypertension; I25.2 Old myocardial infarction; M17.11 Unilateral primary osteoarthritis, right knee; Z20.2 Contact with and (suspected) exposure to infections with a predominantly sexual mode of transmission
CPT/HCPCS: 36415; 80053; 82962; 85027; 86593; 86780; C9803-CS; J0735; U0003; U0005

== ENCOUNTER 2022-06-24 13:47 | Inpatient (IN) | payer MEDICARE, OTHER ==
[2022-06-24 15:22] VITALS: BMI 29.9
[2022-06-24] MEDS ORDERED: IBUPROFEN 400 MG TABLET (FP) PO PRN (18:03)
[2022-06-24] MEDS ORDERED: LOPERAMIDE HCL 2 MG CAPSULE PO PRN (18:03)
[2022-06-24] MEDS ORDERED: MAGNESIUM HYDROX 2400MG/30ML ORAL SUSPENSION 30 ML CUP PO PRN (18:03)
[2022-06-24] MEDS ORDERED: DICYCLOMINE HCL 10 MG CAPSULE PO PRN (18:03)
[2022-06-24] MEDS ORDERED: P-EPHED 60MG/TRIPROLIDI 2.5MG TABLET PO PRN (18:03)
[2022-06-24] MEDS ORDERED: POLYETHYLENE GLYCOL (HEALTHYLAX) 3350 17 GM PACKET PO PRN (18:03)
[2022-06-24] MEDS ORDERED: guaiFENesin 200 MG/10 ML 10 ML UNIT-DOSE CUPS PO PRN (18:03)
[2022-06-24] MEDS ORDERED: ACETAMINOPHEN 325 MG TABLET (FP) PO PRN ×2 (18:03)
[2022-06-24] MEDS ORDERED: BISMUTH SUBSALICYLATE 524 MG/30 ML PO PRN (18:03)
[2022-06-24] MEDS ORDERED: ONDANSETRON *ODT* 4 MG TABLET SL PRN (18:03)
[2022-06-24] MEDS ORDERED: NALOXONE HCL (KLOXXADO) 8 MG SPRAY NS PRN (18:03)
[2022-06-24] MEDS ORDERED: METHOCARBAMOL 500 MG TABLET PO PRN (18:03)
[2022-06-24] MEDS ORDERED: BENZOCAINE/MENTHOL (CHLORASEPTIC ) LOZENGE MM PRN (18:03)
[2022-06-24] MEDS ORDERED: MAG HYDROX/AL HYDROX/SIMETH 30 ML UNIT-DOSE CUP PO PRN (18:03)
[2022-06-24] MEDS ORDERED: PENICILLIN G BENZATHINE 2,400,000 UNIT/4 ML PFS IM ONE (20:00)
[2022-06-24] MEDS ORDERED: methaDONE HCL 10 MG TABLET (FOR DETOX USE ONLY) PO ONE (20:00)
[2022-06-24] MEDS: IBUPROFEN 600 MG TABLET (FP) PO PRN (20:21)
[2022-06-24] MEDS: METOPROLOL TARTRATE 25 MG TABLET (FP) PO SCH (22:16)
[2022-06-24] MEDS: ATORVASTATIN CA 80 MG TABLET (FP) PO SCH (22:16)
[2022-06-24] MEDS: THIAMINE HCL 100 MG TABLET (FP) PO SCH (22:17)
[2022-06-24] MEDS: LATANOPROST 0.005% OPHTH SOLN 2.5ML BOTTLE OU SCH (22:17)
[2022-06-24] MEDS: MELATONIN 5 MG TABLETS PO PRN (22:21)
[2022-06-25] MEDS: hydrOXYzine PAMOATE 25 MG CAPSULE (FP) PO PRN ×2 (10:17→22:25)
[2022-06-25] MEDS: ASPIRIN 81 MG CHEWABLE TABLETS PO SCH (10:17)
[2022-06-25] MEDS: METOPROLOL TARTRATE 25 MG TABLET (FP) PO SCH ×2 (10:17→22:24)
[2022-06-25] MEDS: PRENATAL VITAMINS W/ FOLIC ACID TABLET (FP) PO SCH (10:18)
[2022-06-25] MEDS: NICOTINE 14 MG/24 HOURS TOPICAL PATCH TD SCH (10:18)
[2022-06-25 13:14] LABS: HEMATOCRIT 41.7 % (32.4-45.2); HEMOGLOBIN 14.1 GM/dL (10.7-15.3); MCH 31.6 pg (25.7-33.7); MCHC 33.8 g/dl (32.0-36.0); MEAN CELL VOLUME 93.7 fl (80-96); PLATELET COUNT 163 10^3/uL (134-434); RBC 4.45 M/mm3 (3.60-5.2); RDW 14.6 % (11.6-15.6); WHITE BLOOD COUNT 6.7 K/mm3 (4.0-10.0)
[2022-06-25 13:28] LABS: ALBUMIN 3.4 g/dl (3.4-5.0); BLOOD UREA NITROGEN 22.7 mg/dL (7-18); CALCIUM 9.3 mg/dL (8.5-10.1)
[2022-06-25 13:31] LABS: CREATININE 0.8 mg/dL (0.55-1.3)
[2022-06-25 13:34] LABS: BILIRUBIN,TOTAL 0.6 mg/dL (0.2-1); TOT PROT 6.5 g/dl (6.4-8.2)
[2022-06-25 16:47] LABS: EPI CELLS >36 /uL (0-25.1); HYALINE CASTS 2 /uL (0-3.1); URINE APPEARANCE TURBID; URINE BACTERIA 1646 /uL (0-1359); URINE BILIRUBIN NEGATIVE (NEGATIVE); URINE COLOR YELLOW; URINE GLUCOSE (UA) NEGATIVE (NEGATIVE); URINE KETONE NEGATIVE (NEGATIVE); URINE LEUK ESTERASE 1+ (NEGATIVE); URINE NITRITE NEGATIVE (NEGATIVE); URINE PROTEIN NEGATIVE (NEGATIVE); URINE RBC 26 /uL (0-23.9); URINE UROBILINOGEN 0.2 mg/dL (0.2-1.0); URINE WBC 18 /uL (0-25.8)
[2022-06-25] MEDS: IBUPROFEN 600 MG TABLET (FP) PO PRN (18:27)
[2022-06-25] MEDS: ATORVASTATIN CA 80 MG TABLET (FP) PO SCH (22:23)
[2022-06-25] MEDS: MELATONIN 5 MG TABLETS PO PRN (22:23)
[2022-06-25] MEDS: THIAMINE HCL 100 MG TABLET (FP) PO SCH (22:24)
[2022-06-25] MEDS: LATANOPROST 0.005% OPHTH SOLN 2.5ML BOTTLE OU SCH (22:24)
[2022-06-26] MEDS ORDERED: methaDONE HCL 10 MG TABLET (FOR DETOX USE ONLY) PO ONE (10:00)
[2022-06-26] MEDS: ASPIRIN 81 MG CHEWABLE TABLETS PO SCH (10:18)
[2022-06-26] MEDS: METOPROLOL TARTRATE 25 MG TABLET (FP) PO SCH ×2 (10:18→22:11)
[2022-06-26] MEDS: PRENATAL VITAMINS W/ FOLIC ACID TABLET (FP) PO SCH (10:18)
[2022-06-26] MEDS: NICOTINE 14 MG/24 HOURS TOPICAL PATCH TD SCH (10:21)
[2022-06-26] MEDS: ATORVASTATIN CA 80 MG TABLET (FP) PO SCH (22:10)
[2022-06-26] MEDS: THIAMINE HCL 100 MG TABLET (FP) PO SCH (22:11)
[2022-06-26] MEDS: LATANOPROST 0.005% OPHTH SOLN 2.5ML BOTTLE OU SCH (22:11)
[2022-06-26] MEDS: MELATONIN 5 MG TABLETS PO PRN (22:11)
[2022-06-27 09:04] VITALS: BP 134/79; PULSE 75; RESP 18; TEMP 98.1
[2022-06-27] MEDS: ASPIRIN 81 MG CHEWABLE TABLETS PO SCH (09:38)
[2022-06-27] MEDS: PRENATAL VITAMINS W/ FOLIC ACID TABLET (FP) PO SCH (09:38)
[2022-06-27] MEDS: NICOTINE 14 MG/24 HOURS TOPICAL PATCH TD SCH (09:38)
[2022-06-27] MEDS: METOPROLOL TARTRATE 25 MG TABLET (FP) PO SCH (09:38)
== END 2022-06-27 10:02 | disposition home or self-care (01) | DRG 897 ==
LOC: YASAS 13:47 → Y3N 19:09
PROVIDERS: ADMIT Allergy & Immunology; ATTEND Surgery
PROC: HZ2ZZZZ Detoxification Services for Substance Abuse Treatment (ICD-10-PCS; principal; 2022-06-24)
DX: F11.23 Opioid dependence with withdrawal (principal); N39.0 Urinary tract infection, site not specified; F17.210 Nicotine dependence, cigarettes, uncomplicated; E78.5 Hyperlipidemia, unspecified; I10 Essential (primary) hypertension; M17.0 Bilateral primary osteoarthritis of knee; Z86.19 Personal history of other infectious and parasitic diseases; Z86.69 Personal history of other diseases of the nervous system and sense organs
CPT/HCPCS: 36415; 80053; 81003; 85027; 86593; 86780; C9803-CS; U0003; U0005

== ENCOUNTER 2022-11-17 13:11 | Inpatient (IN) | payer MEDICARE, OTHER ==
[2022-11-17 13:47] VITALS: BMI 30.9
[2022-11-17] MEDS ORDERED: MAG HYDROX/AL HYDROX/SIMETH 30 ML UNIT-DOSE CUP PO PRN (15:51)
[2022-11-17] MEDS ORDERED: BISMUTH SUBSALICYLATE 524 MG/30 ML PO PRN (15:51)
[2022-11-17] MEDS ORDERED: NALOXONE HCL (KLOXXADO) 8 MG SPRAY NS PRN (15:51)
[2022-11-17] MEDS ORDERED: NICOTINE POLACRILEX 2 MG GUM BUC PRN (15:51)
[2022-11-17] MEDS ORDERED: IBUPROFEN 600 MG TABLET (FP) PO PRN (15:51)
[2022-11-17] MEDS ORDERED: ACETAMINOPHEN 325 MG TABLET (FP) PO PRN (15:51)
[2022-11-17] MEDS ORDERED: MAGNESIUM HYDROX 2400MG/30ML ORAL SUSPENSION 30 ML CUP PO PRN (15:51)
[2022-11-17] MEDS ORDERED: NICOTINE 10 MG CARTRIDGE (INHALER) IH PRN (15:51)
[2022-11-17] MEDS ORDERED: methaDONE HCL 10 MG TABLET (FOR DETOX USE ONLY) PO ONE (15:51)
[2022-11-17] MEDS ORDERED: IBUPROFEN 400 MG TABLET (FP) PO PRN (15:51)
[2022-11-17] MEDS ORDERED: BENZONATATE 200 MG CAPSULE PO PRN (15:51)
[2022-11-17] MEDS ORDERED: NALOXONE HCL 0.4 MG/ML VIAL IM PRN (15:51)
[2022-11-17] MEDS ORDERED: guaiFENesin 600 MG TABLET.ER (FP) PO PRN (15:51)
[2022-11-17] MEDS ORDERED: POLYETHYLENE GLYCOL (HEALTHYLAX) 3350 17 GM PACKET PO PRN (15:51)
[2022-11-17] MEDS ORDERED: BENZOCAINE/MENTHOL (CHLORASEPTIC ) LOZENGE MM PRN (15:51)
[2022-11-17] MEDS ORDERED: cloNIDine HCL 0.1 MG TABLET PO PRN (15:51)
[2022-11-17] MEDS ORDERED: DICYCLOMINE HCL 10 MG CAPSULE PO PRN (15:51)
[2022-11-17] MEDS ORDERED: LOPERAMIDE HCL 2 MG CAPSULE PO PRN (15:51)
[2022-11-17] MEDS ORDERED: methaDONE HCL 10 MG TABLET (FOR DETOX USE ONLY) ONE (16:38)
[2022-11-17] MEDS ORDERED: PRENATAL VITAMINS W/ FOLIC ACID TABLET (FP) PO ONE (16:38)
[2022-11-17] MEDS: PRENATAL VITAMINS W/ FOLIC ACID TABLET (FP) PO SCH (16:45)
[2022-11-17] MEDS: THIAMINE HCL 100 MG TABLET (FP) PO SCH (22:38)
[2022-11-17] MEDS: MELATONIN 5 MG TABLETS PO SCH (22:38)
[2022-11-18] MEDS: ASPIRIN 81 MG CHEWABLE TABLETS PO SCH (10:19)
[2022-11-18] MEDS: PRENATAL VITAMINS W/ FOLIC ACID TABLET (FP) PO SCH (10:19)
[2022-11-18] MEDS: METOPROLOL TARTRATE 25 MG TABLET (FP) PO SCH ×2 (10:19→22:29)
[2022-11-18 11:44] LABS: HEMOGLOBIN 14.4 GM/dL (10.7-15.3); MCH 30.9 pg (25.7-33.7); MCHC 33.5 g/dl (32.0-36.0); MEAN CELL VOLUME 92.2 fl (80-96); MEAN PLT VOLUME 9.4 fl (7.5-11.1); PLATELET COUNT 177 10^3/uL (134-434); RBC 4.67 M/mm3 (3.60-5.2); RDW 13.8 % (11.6-15.6); WHITE BLOOD COUNT 7.1 K/mm3 (4.0-10.0)
[2022-11-18] MEDS ORDERED: PNEUMOC 20-VAL CONJ-DIP CRM/PF 0.5 ML SYRINGE IM ONE (12:00)
[2022-11-18] MEDS: ACETAMINOPHEN 325 MG TABLET (FP) PO PRN (12:21)
[2022-11-18 12:33] LABS: POTASSIUM 4.3 mmol/L (3.5-5.1)
[2022-11-18 12:46] LABS: ALBUMIN 3.2 g/dl (3.4-5.0); CALCIUM 9.3 mg/dL (8.5-10.1)
[2022-11-18 12:51] LABS: TOT PROT 6.5 g/dl (6.4-8.2)
[2022-11-18 12:58] LABS: CREATININE 0.8 mg/dL (0.55-1.3)
[2022-11-18 13:00] LABS: BILIRUBIN,TOTAL 0.5 mg/dL (0.2-1)
[2022-11-18] MEDS: THIAMINE HCL 100 MG TABLET (FP) PO SCH (22:29)
[2022-11-18] MEDS: LATANOPROST 0.005% OPHTH SOLN 2.5ML BOTTLE OU SCH (22:29)
[2022-11-18] MEDS: MELATONIN 5 MG TABLETS PO SCH (22:29)
[2022-11-19] MEDS ORDERED: methaDONE HCL 10 MG TABLET (FOR DETOX USE ONLY) PO ONE (10:00)
[2022-11-19] MEDS: ASPIRIN 81 MG CHEWABLE TABLETS PO SCH (10:14)
[2022-11-19] MEDS: ACETAMINOPHEN 325 MG TABLET (FP) PO PRN ×2 (10:14→17:35)
[2022-11-19] MEDS: PRENATAL VITAMINS W/ FOLIC ACID TABLET (FP) PO SCH (10:14)
[2022-11-19] MEDS: METOPROLOL TARTRATE 25 MG TABLET (FP) PO SCH ×2 (10:16→22:36)
[2022-11-19] MEDS: NICOTINE 14 MG/24 HOURS TOPICAL PATCH TD PRN (10:17)
[2022-11-19 12:00] LABS: CHOLESTEROL 132 mg/dL (50-200)
[2022-11-19 12:01] LABS: HDL CHOLESTEROL 47 mg/dL (40-60); LDL CHOLESTEROL (ONLY SJRH) 78 mg/dL (5-100)
[2022-11-19] MEDS: LATANOPROST 0.005% OPHTH SOLN 2.5ML BOTTLE OU SCH (22:34)
[2022-11-19] MEDS: THIAMINE HCL 100 MG TABLET (FP) PO SCH (22:34)
[2022-11-19] MEDS: MELATONIN 5 MG TABLETS PO SCH (22:36)
[2022-11-20] MEDS: ASPIRIN 81 MG CHEWABLE TABLETS PO SCH (09:45)
[2022-11-20] MEDS: METOPROLOL TARTRATE 25 MG TABLET (FP) PO SCH ×2 (09:47→22:05)
[2022-11-20] MEDS: PRENATAL VITAMINS W/ FOLIC ACID TABLET (FP) PO SCH (09:47)
[2022-11-20] MEDS: NICOTINE 14 MG/24 HOURS TOPICAL PATCH TD PRN (09:50)
[2022-11-20] MEDS: MELATONIN 5 MG TABLETS PO SCH (22:05)
[2022-11-20] MEDS: LATANOPROST 0.005% OPHTH SOLN 2.5ML BOTTLE OU SCH (22:06)
[2022-11-20] MEDS: THIAMINE HCL 100 MG TABLET (FP) PO SCH (22:06)
[2022-11-21 05:40] VITALS: PULSE 67
[2022-11-21 09:38] VITALS: BP 121/61; RESP 18; TEMP 98.1
[2022-11-21] MEDS ORDERED: methaDONE HCL 10 MG TABLET (FOR DETOX USE ONLY) PO ONE (10:00)
[2022-11-21] MEDS: PRENATAL VITAMINS W/ FOLIC ACID TABLET (FP) PO SCH (10:21)
[2022-11-21] MEDS: ASPIRIN 81 MG CHEWABLE TABLETS PO SCH (10:21)
[2022-11-21] MEDS: METOPROLOL TARTRATE 25 MG TABLET (FP) PO SCH (10:22)
[2022-11-21] MEDS: NICOTINE 14 MG/24 HOURS TOPICAL PATCH TD PRN (10:23)
== END 2022-11-21 11:08 | disposition left against medical advice (07) | DRG 894 ==
LOC: YASAS 13:11 → Y6N 16:22
PROVIDERS: ADMIT Allergy & Immunology; ATTEND Surgery
PROC: HZ2ZZZZ Detoxification Services for Substance Abuse Treatment (ICD-10-PCS; principal; 2022-11-17)
DX: F11.23 Opioid dependence with withdrawal (principal); F19.282 Other psychoactive substance dependence with psychoactive substance-induced sleep disorder; F17.210 Nicotine dependence, cigarettes, uncomplicated; F19.24 Other psychoactive substance dependence with psychoactive substance-induced mood disorder; I25.10 Atherosclerotic heart disease of native coronary artery without angina pectoris; I10 Essential (primary) hypertension; I25.2 Old myocardial infarction; M19.90 Unspecified osteoarthritis, unspecified site; Z91.410 Personal history of adult physical and sexual abuse; Z86.19 Personal history of other infectious and parasitic diseases; Z99.89 Dependence on other enabling machines and devices
CPT/HCPCS: 36415; 80053; 80061; 82306; 85027; 86593; 86780; 87635; 87811; 93005; 93010